=== PATIENT | female | born 1990 | race Caucasian/White ===

== ENCOUNTER 2020-11-29 22:37 | Emergency (ER) | payer MEDICAID, SELFPAY ==
[2020-11-29 22:46] VITALS: BP 114/59; PULSE 75; RESP 18; TEMP 36.7; O2SAT 100; BMI 28.0
--- NOTE | 2020-11-29 23:48 | ED.EYEPROB ---
HPI - Eye Problem General Chief complaint: Eye Problems Stated complaint: Eye swelling Time Seen by Provider: 11/29/20 23:47 Source: patient Mode of arrival: ambulatory Limitations: no limitations History of Present Illness HPI Narrative: States question felt like insect flew into left eye and she washed her eye out did not have any pain or discomfort short time after noticed some eyelid swelling in the lower eyelid. Denies any pain or discharge in the eye. Denies any blurred vision. Denies any feeling of foreign sensation. chief complaint: eye redness Onset (ago): hour(s) Onset description: gradual Duration: constant Location: left eye Place: home Severity: mild Treatments Prior to Arrival: none Related Data Previous Rx's Medication Instructions Recorded diphenhydramine HCl [Benadryl 25 mg PO BEDTIME PRN #14 tab 11/30/20 Allergy] erythromycin 0.5 inch OPHTHALMIC (EYE) QID #1 g 11/30/20 Allergies Allergy/AdvReac Type Severity Reaction Status Date / Time No Known Allergies Allergy Verified 11/29/20 22:46 Review of Systems Review of Systems: Constitutional: No Weight loss, No Fever, No Chills, No Night Sweats, No Fatigue, No Malaise ENT/Mouth: No Hearing loss, No Ear Pain, No Nasal Congestion, No Sinus Pain, No Hoarseness, No sore throat, No Rhinorrhea, No Swallowing Difficulty Eyes: No Eye Pain, + Swelling, + Redness, No Foreign Body, No Discharge, No Vision Changes Cardiovascular: No Chest Pain, No SOB, No Dyspnea on Exertion, No Orthopnea, No Edema, No Palpitations Respiratory: No Cough, No Sputum, No Wheezing, No Smoke Exposure, No Dyspnea Musculoskeletal: No joint pain, No Myalgias, No Joint Swelling Skin: No Skin Lesions, No rash Neuro: No Weakness, No Numbness, No Paresthesias, No Loss of Consciousness, No Dizziness, No Headache Psych: No Anxiety/Panic, No Depression, No SI/HI/AH/VH, No Social Issues, Heme/Lymph: No Bruising, No Bleeding,No Lymphadenopathy Endocrine: No Polyuria, No Polydipsia, No Temperature Intolerance Yes all other systems are reviewed and are negative [facility] Past Medical History Medical History (Updated 11/30/20 @ 00:05 by Kyle Hurley NP) No active medical problems Social History Social History Advance Directives: No Advance Directives Information Provided: No Patient : No Physical Exam Vital Signs: Vital Signs: Last Vital Signs Temp 98.1 F 11/29/20 22:46 Pulse 75 11/29/20 22:46 Resp 18 11/29/20 22:46 BP 114/59 L 11/29/20 22:46 Pulse Ox 100 11/29/20 22:46 Body Mass Index 28.0 Reviewed Const: General: cooperative, healthy appearing, comfortable, no acute distress, well developed, alert and awake HENMT: Head: Yes normal to inspection Ears: hearing grossly normal bilaterally Eyes: General: appearance normal, both eyes and all related structures Visual Lund: normal visual ulnd by confrontation Eyelids: Yes eyelid abnormality (Very slight swelling to the lower eyelid) Conjunctivae: conjunctival abnormal (Very slight erythema, no evidence of foreign body or corneal abrasion.) left Sclerae: sclerae normal Corneas: corneas normal Pupils: Equal, round and reactive pupils present EOM: EOMs intact bilaterally Neck: Neck: Yes normal visual inspection Skin: General skin exam: no rashes or lesions noted, elasticity normal and turgor normal Wounds: no wounds Nails: normal Neuro: General: normal sensation to monofilament Cranial nerves: Yes Equal, round and reactive pupils present Extrem: General: No cyanosis Psych: Appearance: grossly normal and well kempt Discharge Plan Discharge Clinical Impression: Conjunctivitis Patient Disposition: Home, Self-Care Instructions: Conjunctivitis (ED) Additional Instructions: Home care instructions reviewed Return if any concerns or worsening symptoms Thank you Prescriptions: New erythromycin 5 mg/gram (0.5 %) ointment 0.5 inch ophthalmic (eye) QID Qty: 1 RF: 1 diphenhydramine HCl [Benadryl Allergy] 25 mg tablet 25 mg PO BEDTIME PRN (Reason: allergic reaction) Qty: 14 RF: 0 Referrals: Nandini Sandoval NP [Primary Care Provider] - 5 days
[2020-11-30] VITALS: BP 106/70; PULSE 62; RESP 18; O2SAT 100
== END 2020-11-30 00:18 | disposition home or self-care (01) ==
PROVIDERS: Emergency Provider Internal Medicine; PCP Nurse Practitioner Family
DX: H10.9 Unspecified conjunctivitis (principal)
CPT/HCPCS: 99283; 99284

== ENCOUNTER 2022-04-03 10:00 | Outpatient (RCR) | payer MEDICAID, SELFPAY | END 2022-05-12 11:46 | disposition home or self-care (01) | LOC: HO.PT 10:00 | PROVIDERS: PCP Internal Medicine; Visit Provider Internal Medicine | DX: M54.2 Cervicalgia (principal) | CPT/HCPCS: 97012; 97110; 97112; 97140; 97161; 97530 ==

== ENCOUNTER 2023-03-23 09:32 | Outpatient (REF) | payer MEDICAID, SELFPAY ==
--- NOTE | ~2023-03-23 | XR_ITS ---
EXAMINATION: XR SHOULDER, LEFT CLINICAL INFORMATION: Pain Left shoulder pain for 2-3 weeks with exacerbation of chronic shoulder pain, no history of trauma. COMPARISON: None available. TECHNIQUE: AP external rotation, Grashey, scapular Y, and axillary views of the left shoulder. FINDINGS: The bones and soft tissues are normal. No fracture. Glenohumeral and acromioclavicular alignment is anatomic with normal joint space. No abnormal soft tissue calcifications. XR/XR shoulder LT min 2V IMPRESSION: No bony abnormality.
== END 2023-03-23 09:33 | disposition home or self-care (01) ==
LOC: HO.HHCX 09:32
PROVIDERS: Visit Provider Internal Medicine Geriatric Medicine
DX: M25.512 Pain in left shoulder (principal)
CPT/HCPCS: 73030

== ENCOUNTER 2024-01-03 09:00 | Outpatient (RCR) | payer MEDICAID, SELFPAY | END 2024-02-25 07:43 | disposition home or self-care (01) | LOC: HO.PT 09:00 | PROVIDERS: PCP Internal Medicine; Visit Provider Internal Medicine | DX: M54.2 Cervicalgia (principal); M25.512 Pain in left shoulder; M54.50 Low back pain, unspecified | CPT/HCPCS: 97012; 97110; 97140; 97161 ==

== ENCOUNTER 2024-10-11 08:42 | Outpatient (AMB) | payer MEDICAID, SELFPAY ==
[2024-10-11 08:56] VITALS: BMI 26.2
--- NOTE | 2024-10-11 08:56 | A.OFFVIS_ITS ---
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 She also has intermittent left shoulder pain. The patient states that she has been to formal physical therapy for her shoulder pain, low back pain and neck pain. The therapy gave her minimal relief. She has tried Tylenol and anti-inflammatory medicines which gave her relief. The patient also reports intermittent weakness in her left arm. The patient states that she has difficulty carrying groceries because of her pain and weakness. At this point the patient's neck pain is interfering with her activities of daily living and her ability to sleep well through the night. Allergies No Known Allergies Allergy (Verified 10/11/24 09:01) Medication List - Last Reviewed 10/11/24 by SARA Sanchez cetirizine 10 mg PO DAILY medroxyprogesterone mg IM paroxetine HCl 10 mg PO DAILY [facility] Medical History (Updated 10/11/24 @ 09:07 by Nik Mckeon MD) No active medical problems Social History (Updated 10/11/24 @ 08:57 by SARA Sanchez) Patient Tobacco Use Status: Never used Tobacco Current occupational status: unemployed Current occupation: rt handed Physical Exam Vital Signs: BMI result Body Mass Index 26.2 Const Other: Well-nourished well-developed very friendly female awake alert and oriented x3 in no acute distress Neck Other: Cervical spine examination shows pain with range of motion, left-sided paraspinal muscle tenderness, positive Spurling's test, 4/5 strength with testing of her left biceps and wrist extensors when compared to 5/5 strength on her right side Extrem Other: Left shoulder examination shows slightly decreased range of motion when compared to her right shoulder, 4+ out of 5 strength with supraspinatus testing, positive impingement signs, tenderness over her acromioclavicular joint, no instability Results Reviewed Results Reviewed: X-rays of the patient's left shoulder show moderate acromioclavicular joint narrowing, a type 2 acromion, no acute bony abnormalities Assessment & Plan Assessment & Plan (1) Left shoulder pain: Code(s): M25.512 - Pain in left shoulder Category: Medical (2) Neck pain on left side: Code(s): M54.2 - Cervicalgia Category: Medical Plan Ms. George presents with progressively worsening neck pain which radiates down her left arm as well as associated left arm weakness most likely due to cervical stenosis versus a disc herniation. Thus, I will send the patient for an MRI of her cervical spine for further evaluation. I will see her back once the MRI is completed to discuss the findings and treatment options. We will hold off on a left shoulder MRI at this time. Feel free to call me at any time should questions regarding her orthopedic management arise. Thank you very much for asking me to see this very friendly patient. I spent 21 minutes in reviewing the patient's records and imaging studies, seeing the patient and documenting in the medical record. Orders: Orders XR shoulder LT min 2V Today M25.512 - Pain in left shoulder MR cervical spine wo con Today M54.2 - Cervicalgia Coding Level of Care Code New Pt Level 3 (31542) Complex EM visit Add On G2211 Diagnoses Left shoulder pain M25.512 Neck pain on left side M54.2
--- OUTSIDE RECORDS SUMMARY | 2024-10-11 09:02 | XMS_ITS | Clinical Summary ---
Author Organization [facility] [address] [place] [address] [address] [place], [place] Phone Care Team Providers Care Vegetable Loader Machine Operator Name Role Phone Rosalind Galindo MD Primary Care Provide r Allergies No known active allergies Medications calcium carbonate-vitami n D 600 mg-10 mcg (400 unit) per tablet TAKE 1 TABLET BY MOUTH TWICE DAILY 11/22/2023 Active calcium carbonate-vitami n D3 (Calcium 600 with Vitamin D3) 600 mg-10 mcg (400 unit) chewable tablet Take 1 Tablet by mouth 2 times daily. 09/02/2022 Active fexofenadine HCl (MARJ ALLERGY ORAL) Take by mouth. Active ibuprofen (ADVIL,MOTRIN) 800 mg tablet Take 1 Tab by mouth every 8 hours as needed for Pain for up to 30 days. 04/15/2020 Active Active Problems Problem Noted Date Diagnosed Date Pap smear abnormality of cervix with ASCUS favor ing benign 09/04/2021 Overview (04/07/2024): 08/2021 PAP , Ascus, + hpv, (neg 16, 18, 45) Per [facility]- Colpo 10/06/2021- Colpo Bx neg Plan repeat pap smear 1 yr 11/22/23- pap smear Encounters Date Type Department Care Team Description 08/14/2024 9:00 AM EDT Clinical Support Obstetrics and Gynecology [address] [phone] Encounter for surveillance of injectable contraceptive (Primary Dx) from Last 3 Months Immunizations Name Administration Dates Next Due Moderna SARS-CoV-2 COVID-19, mRNA, LNP-S, preservative free 07/22/2021,11/27/2020,11/12/2020 Surgical History Surgery Date Site/Laterality Comments OTHER SURGICAL HISTORY PROCEDURE: DENIES PREVIOUS SURGERY Medical History Medical History Date Comments Hx of migraines DX:Hx of migrain es; COMMENT: with aura Family History Medical History Relation Name Comments No Known Problems Brother Diabetes Father Hypertension Father Hypertension Maternal Grandfather Hypertension Maternal Grandmother Diabetes Mother Hypertension Mother Hypertension Paternal Grandfather Other cancer Paternal Grandfather Hypertension Paternal Grandmother Other cancer Paternal Grandmother No Known Problems Sister Breast cancer Neg Hx Colon cancer Neg Hx Ovarian cancer Neg Hx Prostate cancer Neg Hx Uterine cancer Neg Hx Relation Name Status Comments Brother Alive Father Alive Maternal Grandfather Maternal Grandmother Mother Alive Paternal Grandfather Paternal Grandmother Sister Alive Social History Tobacco Use Types Packs/Day Years Used Date Smoking Tobacco: Never Smokeless Tobacco: Never Tobacco Cessation:Counseling Given: Not Answered Alcohol Use Standard Drinks/Week Comments No 0 (1 standard drink = 0.6 oz pur e alcohol) Comments No Sex and Gender Information Value Date Recorded Sex Assigned at Not on file Legal Sex Female 3:34 PM EST Gender Identity Not on file Sexual Orientation Not on file Obstetrics History Last Filed Vital Signs Vital Sign Reading Time Taken Comments Blood Pressure 130/70 08/14/2024 8:53 AM EDT Pulse 81 05/16/2024 9:09 AM EST Temperature - - Respiratory Rate - - Oxygen Saturation - - Inhaled Oxygen Concentration - - Weight 59 kg (130 lb) 11/22/2023 8:51 AM EDT Height 152.4 cm (5') 11/22/2023 8:51 AM EDT Body Mass Index 25.39 11/22/2023 8:51 AM EDT Plan of Treatment Upcoming Encounters Date Type Department Care Team (Late st Contact Info) Description 11/13/2024 9:00 AM EDT Clinical Support Obstetrics and Gynecology [address] [phone] Health Maintenance Due Date Last Done Comments Pneumococcal Vaccine: Pediatrics (0 to 5 Years) and At-Risk Patients (6 to 64 Years) (1 of 2 - PCV) 2008 DTaP,Tdap,and Td Vaccines (8 - Td or Tdap) 04/05/2017 04/05/2007, 02/18/2001, 09/04/1993, Additional history exists Depression Screening 05/16/2022 Social Influencers of Health Screening 05/16/2022 COVID-19 Vaccine ( season) 2024 07/22/2021, 06/19/2021, 11/27/2020, Additional history exists Influenza Vaccine (Season Ended) 2025 03/04/2023, 03/24/2022, 03/10/2021, Additional history exists Cervical Cancer Screening: HPV 11/21/2028 11/22/2023 IPV Vaccines Completed 09/04/1993, 02/07, 01/04/1990, Additional history exists MMR Vaccines Completed 09/04/1993, 03/06/1991 Hepatitis B Vaccines Completed 03/18/1999, 12/13/1998, 11/13/1998 Meningococcal ACWY Vaccine Completed 12/22/2005 HPV Vaccines Completed 04/15/2009, 08/05, 04/05/2007 Hepatitis C Screening Completed 10/01/2017 HIV Screening Completed 10/13/2021, 10/01/2017 HIB Vaccines Aged Out No longer eligi ble based on patient's age to complete this topic Hepatitis A Vaccines Aged Out No long er eligible based on patient's age to complete this topic Meningococcal B Vaccine Aged Out No l onger eligible based on patient's age to complete this topic RSV Immunization Patients Under 20 months Aged Out No longer eligible based on patient's age to complete this topic Varicella Vaccines Aged Out No longer eligible based on patient's age to complete this topic Procedures Procedure Name Priority Date/Time Associated Diagnosis Comments HPV Routine 11/22/2023 HEPATITIS C SCREENING Routine 10/01/2017 HIV SCREENING Routine 10/01/2017 from Last 3 Months or Most Recently Relevant to Health Maintenance Results * Cervical Cancer Screening: HPV (11/22/2023) [facility] Cervical Cancer Screening: HPV Abstracted, Negative Historical Provider HEALTH MAINTENANCE Final Result * HIV Screening (10/01/2017) [facility] HIV Screening Abstracted Historical Provider HEALTH MAINTENANCE Final Result * Hepatitis C Screening (10/01/2017) [facility] Hepatitis C Screening Abstracted Historical Provider HEALTH MAINTENANCE Final Result from Last 3 Months or Most Recently Relevant to Health Maintenance Insurance MEDICAID - [place] Care Teams Vegetable Loader Machine Operator Relationship Specialty Start Date End Date Rosalind Galindo MD [address] [phone] PCP - General Internal Medicine 08/11/24
--- OUTSIDE RECORDS SUMMARY | 2024-10-11 09:02 | XMS_ITS | Encounter Summary ---
Author Organization [employer] Address [address] [facility] [address] [place] [address] Care Team Providers Care Pool Servicer Name Role Phone Rosalind Galindo MD Primary Care Provide r Encounter Details Date Type Department Care Team (Late st Contact Info) Description 09/01/2022 Orders Only [facility] [address] [place] [address] Rolanda Ramos LPN Social History Tobacco Use Types Packs/Day Years Used Date Smoking Tobacco: Never Assessed Comments Unknown Sex and Gender Information Value Date Recorded Sex Assigned at Female 04/06/2022 10:21 AM EDT Legal Sex Female 10:21 AM EDT Gender Identity Female 04/06/2022 10:21 AM EDT Sexual Orientation Straight 04/06/2022 10 :21 AM EDT documented as of this encounter Plan of Treatment Upcoming Encounters Date Type Department Care Team (Late st Contact Info) Description 11/15/2024 9:00 AM EDT Office Visit [facility] [address] [place] [address] Rosalind Galindo MD [address] [place] [address] documented as of this encounter Visit Diagnoses Not on filedocumented in this encounter Care Teams Pool Servicer Relationship Specialty Start Date End Date Rosalind Galindo MD [address] [place] [id number] PCP - General Family Medicine 01/23/21 documented as of this encounter
--- OUTSIDE RECORDS SUMMARY | 2024-10-11 09:02 | XMS_ITS | Encounter Summary ---
Author Organization [facility] Address [address] [place] [phone] Phone Care Team Providers Care Ice Puller Name Role Phone Isa Momin MD Primary Care Provider [phone] Encounter Details Date Type Department Care Team (Late st Contact Info) Description 09/25/2009 Documentation EM Family Medicine [address] [place] [address] Family Medicine, Physician [address] [place], [place] [phone] Social History Tobacco Use Types Packs/Day Years Used Date Smoking Tobacco: Never Assessed Comments Unknown Sex and Gender Information Value Date Recorded Sex Assigned at Not on file Legal Sex Female 4:32 PM EDT Gender Identity Not on file Sexual Orientation Not on file documented as of this encounter Plan of Treatment Not on file documented as of this encounter Visit Diagnoses Not on filedocumented in this encounter Care Teams Ice Puller Relationship Specialty Start Date End Date Isa Momin MD [address] [place] [address] DULCE MARIA Reardon [id number] PCP - General 01/15/17 08/19/22 documented as of this encounter
--- OUTSIDE RECORDS SUMMARY | 2024-10-11 09:02 | XMS_ITS | Encounter Summary ---
Author Organization [employer] Address [address] [facility] [address] [place] [address] Care Team Providers Care Distribution Center Manager Name Role Phone Rosalind Galindo MD Primary Care Provide r Reason for Visit * Reason Comments Med Refill Encounter Details Date Type Department Care Team ([facility] st Contact Info) Description 04/23/2023 Refill [facility] [address] [place], [place] [phone] Kaitlin Leung MD [address] [place], [place] [phone] Anxiety disorder, unspecified Social History Tobacco Use Types Packs/Day Years Used Date Smoking Tobacco: Never Smokeless Tobacco: Never Housing Stability Answer Date Recorded What is your housing situation today? I have sharon burnham 04/12/[address] you li ve. Do you have problems with any of the following? Pests such as bugs, ants, or mice 04/12/2023 Food Insecurity Answer Date Recorded Within the past 12 months, y ou worried that your food would run out before you got money to buy more: Never True 04/12/2023 Within the past 12 months,th e food you bought just didn't last and you didn't have enough money to get more: Never True 11/2022 Transportation Answer Date Recorded In the past 12 months, has l ack of transportation kept you from medical appts, meetings, work or from getting things needed for daily living? No 04/12/2023 Utilities Answer Date Recorded In the past 12 months, has t he electric, gas, oil or water company threatened to shut off services in your home? No 04/12/2023 Comments Unknown Sex and Gender Information Value [...] Description 11/15/2024 9:00 AM EDT Office Visit [facility] [address] [place] [address] Rosalind Galindo MD [address] [place] [address] documented as of this encounter Visit Diagnoses Diagnosis Anxiety disorder, unspecified documented in this encounter Care Teams Distribution Center Manager Relationship Specialty Start Date End Date Rosalind Galindo MD [address] [place] [id number] PCP - General Family Medicine 01/23/21 documented as of this encounter
--- OUTSIDE RECORDS SUMMARY | 2024-10-11 09:02 | XMS_ITS | Clinical Summary ---
Author Organization [employer] Address [address] [facility] 7t [place] [address] Care Team Providers Care Housekeeping Manager Name Role Phone Rosalind Galindo MD Primary Care Provide r Allergies No known active allergies Medications albuterol 108 (90 Base) MCG/ACT inhalerIndicatio ns:Mild intermittent asthma, unspecified whether complicated Inhale 2 puffs every 6 (six) hours if needed for wheezing. 18 g 11 09/18/19 23 Active Calcium + Vitamin D3 600-10 MG-MCG tablet Take 1 tablet by mouth 2 times daily. 09/03/19 23 Active cholecalciferol (Vitamin D-3) 50 MCG (1999 UT) tablet Take 50 mcg by mouth in the morning. 09/01/19 23 Active medroxyPROGESTER one (Depo-Provera) 150 MG/ML injection TAKE TO DOCTOR'S OFFICE FOR ADMINISTRATION EVERY 3 MONTHS 09/01/19 23 Active hydrOXYzine pamoate (Vistaril) 25 MG capsuleIndicatio ns:Anxiety disorder, unspecified TAKE 1 CAPSULE BY MOUTH THREE TIMES DAILY NEEDED FOR ANXIETY 45 capsule 2 02/05/20 23 Active hydrOXYzine pamoate (Vistaril) 25 MG capsule TAKE 1 CAPSULE BY MOUTH THREE TIMES DAILY NEEDED FOR ANXIETY 01/27/20 23 Active PARoxetine (Paxil) 10 MG tablet TAKE 1 TABLET BY MOUTH EVERY DAY 03/31/20 23 Active fluticasone (Flonase) 50 MCG/ACT nasal spray INSTILL 1-2 SPRAYS IN EACH NOSTRIL ONCE DAILY NEEDED 48 g 1 03/21/20 24 Active cetirizine (ZyrTEC) 10 MG tablet TAKE 1 TABLET BY MOUTH EVERY DAY 90 tablet 1 05/30/20 24 Active PARoxetine (Paxil) 10 MG tabletIndication s:Anxiety disorder, unspecified Take 1 tablet (10 mg) by mouth Once per day. 30 tablet 08/24/19 25 Active acetaminophen (Tylenol 8 Hour) 650 MG ER tabletIndication s:Chronic left shoulder pain,Chronic neck pain Take 1 tablet (650 mg) by mouth every 8 (eight) hours if needed for mild pain for up to 20 days. Do not crush, chew, or split. 30 tablet 1 08/24/19 25 025 cyclobenzaprine (Flexeril) 5 MG tabletIndication s:Chronic left shoulder pain,Chronic neck pain Take 1 tablet (5 mg) by mouth at bedtime. 30 tablet 08/24/19 25 025 Active Problems Problem Noted Date Diagnosed Date Left hand weakness 08/23/2024 Assessment & Plan (08/23/2024 1:25 PM EDT): Nerve conduction test ordered Anxiety 08/23/2024 Assessment & Plan (08/23/2024 1:27 PM EDT): Paroxetine 10mg daily refilled today Right foot pain 09/17/2023 Assessment & Plan (09/17/2023 12:27 PM EDT): Orthopedic boot prescriction to be generated Right wrist pain 09/17/2023 Assessment & Plan (09/17/2023 12:27 PM EDT): Wrist brace prescription to be generated Health care maintenance 09/17/2022 Chronic left-sided low back pain 09/15/2022 Assessment & Plan (09/17/2022 12:59 PM EDT): XRAY ordered fr further evaluation She may continue with ibuprofen and acetaminophen PRN Chronic left shoulder pain 09/15/2022 Assessment & Plan (08/23/2024 1:25 PM EDT): Apply heat on affected area Acetaminophen PRN I prescribed flexeril 5mg at bed time, she is aware of side effect somnolence, I advise not to drive while taking this medication Patient will be referred to orthopedics Nerve conduction test Chronic neck pain 09/15/2022 Assessment & Plan (08/23/2024 1:24 PM EDT): Apply heat on affected area Acetaminophen PRN I prescribed flexeril 5mg at bed time, she is aware of side effect somnolence, I advise not to drive while taking this medication Patient will be referred to orthopedics Nerve conduction test Assessment & Plan (09/17/2022 12:58 PM EDT): Still persistent I will order XRAY for further evaluation She may continue to take acetaminophen and ibuprofen PRN Mild intermittent asthma 09/15/2022 Assessment & Plan (09/17/2022 12:59 PM EDT): Symptoms under control I will refill her albuterol Vitamin D deficiency 09/15/2022 Encounters Date Type Department Care Team Description 08/31/2024 Orders Only [facility] [address] [place] [address] Rosalind Galindo MD Chronic left shoulder pain (Primary Dx); Chronic neck pain 08/31/2024 Telephone [employer] [address] [place] [address] Rosalind Galindo MD 08/23/2024 9:15 AM EDT Office Visit [facility] [address] [place] [phone] Rosalind Galindo MD Chronic left shoulder pain (Primary Dx); Chronic neck pain; Left hand weakness; Anxiety disorder, unspecified; Anxiety 08/23/2024 Travel 08/18/2024 Population Health Risk Score Community Care [facility] ([facility] Department [address] [place] [phone] Provider, Population Health Generic 08/15/2024 Patient Outreach [facility] [address] [place] [phone] Rosalind Galindo MD Pre-visit Planning (SDOH Screening negative and Tobacco screening negative) from Last 3 Months Immunizations Name Administration Dates Next Due DTP 01/04/1990,1989 DTaP, 5 pertussis antigens 09/04/1993,03/06/1991 ,03/06/1990 HPV, Quadrivalent 04/15/2009,08/14/2008,04/05/20 07 Hep B, Adolescent or Pediatric 03/18/1999,1998,11/13/1998 INFLUENZA VACCINE QUADRIVALE NT RECOMBINANT PRESERVATIVE FREE RIV4 04/02/2020 IPV 09/04/1993, 1,01/04/1990,11/04 Influenza Injectable Quadriv alant Preservative Free IIV4 MDCK 03/24/2022 Influenza injectable quadriv alent IIV4 with preservative 02/24/2018 Influenza injectable quadriv alent preservative free 03/04/2023,03/10/2021,02/27/2019,03/01 Influenza, IIV3, injectable 04/04/2014, 0,04/05/2007 Influenza, Split (incl. tal fied surface antigen) 03/22/2013,06/29/2012 MMR 09/04/1993,03/06/1991 Meningococcal MCV4P [id number] 12/22/2005 Moderna Covid-19 Vaccine 12+ 07/22/2021,11/24/19 21,11/12/2020 Novel [id number], all formulations 04/15/2009 TD (adult), 2 Lf tetanus tox oid, preservative free, adsorbed 02/18/2001 Tdap 04/05/2007 Family History Medical History Relation Name Comments Diabetes Father Hypertension Father Diabetes Mother Hypertension Mother Relation Name Status Comments Father Mother Social History Tobacco Use Types Packs/Day Years Used Date Smoking Tobacco: Never Passive Smoke Exposure: Never Smokeless Tobacco: Never Tobacco Cessation:Counseling Given: Not Answered Alcohol Use Standard Drinks/Week Comments Never 0 (1 standard drink = 0.6 oz pur e alcohol) Depression Answer Date Recorded Patient Health Questionnaire-9 Score 0 08/23/2024 Patient Health Questionnaire-9 Score 0 08/23/2024 Last PHQ-9: Questionnaire Data Not on file 0 08/23/2024 Housing Stability Answer Date Recorded What is your housing situation today? I have sharon burnham 08/15/[address] you li ve. Do you have problems with any of the following? None of the above 08/15/2024 Food Insecurity Answer Date Recorded Within the past 12 months, y ou worried that your food would run out before you got money to buy more: Never True 08/15/2024 Within the past 12 months,th e food you bought just didn't last and you didn't have enough money to get more: Never True 04/2025 Transportation Answer Date Recorded In the past 12 months, has l ack of transportation kept you from medical appts, meetings, work or from getting things needed for daily living? No 08/15/2024 Utilities Answer Date Recorded In the past 12 months, has t he electric, gas, oil or water company threatened to shut off services in your home? No 08/15/2024 Depression Answer Date Recorded Patient Health Questionnaire-2 Score 0 08/23/2024 Internet Access Answer Date Recorded Internet Access Q1 Yes 08/15/2024 Internet Access Q2 Not on file 08/15/2024 Comments Unknown Sex and Gender Information Value Date Recorded Sex Assigned at Female 04/06/2022 10:21 AM EDT Legal Sex Female 10:21 AM EDT Gender Identity Female 04/06/2022 10:21 AM EDT Sexual Orientation Straight 04/06/2022 10 :21 AM EDT Last Filed Vital Signs Vital Sign Reading Time Taken Comments Blood Pressure 120/73 08/23/2024 9:19 AM EDT Pulse 73 08/23/2024 9:19 AM EDT Temperature 35.9 ??C (96.7 ??F) 08/23/2024 9:19 AM ED T Respiratory Rate 16 08/23/2024 9:19 AM EDT Oxygen Saturation 99% 09/17/2023 10:46 AM EDT Inhaled Oxygen Concentration - - Weight 64 kg (141 lb) 08/23/2024 9:19 AM EDT Height 157.5 cm (5' 2 ) 08/23/2024 9:19 AM EDT Body Mass Index 25.79 08/23/2024 9:19 AM EDT Plan of Treatment Upcoming Encounters Date Type Department Care Team (Late st Contact Info) Description 11/15/2024 9:00 AM EDT Office Visit [facility] [address] [place] [address] Rosalind Galindo MD [address] [place] [address] Health Maintenance Due Date Last Done Comments Family Planning (PISQ) 2004 Pneumococcal Vaccine: Pediatrics (0 to 5 Years) and At-Risk Patients (6 to 49) Years) (1 of 2 - PCV) 2008 DTaP/Tdap/Td Vaccines (7 - Td or Tdap) 04/05/2017 04/05/2007, 02/18/2001, 09/04/1993, Additional history exists COVID-19 Vaccine ( season) 2024 07/22/2021, 06/19/2021, 11/23/2020, Additional history exists Influenza Vaccine (#1) 2024 , 03/24/2022, 03/10/2021, Additional history exists Cervical Cancer Screening 11/21/2024 HPV/Cotest 11/21/2024 Pap Smear 11/21/2024 11/22/2023, 08/25/2021 SDOH Screening 08/15/2025 08/15/2024 Alcohol/Substance Use Screening 08/23/2025 08/23/2024 Depression Screening 08/23/2025 08/23/2024, 08/24/19 25 Tobacco Screening 08/23/2025 08/23/2024 Zoster Vaccines (1 of 2) 2039 RSV Patients and Patients Aged 60 years or older (1 - 1-dose 75+ series) 2064 IPV Vaccines Completed 09/04/1993, 02/07, 01/04/1990, Additional history exists Hepatitis B Vaccines Completed 03/18/1999, 03/18/1999, 12/13/1998, Additional history exists Meningococcal Vaccine Completed 12/22/2005 HPV Vaccines Completed 04/15/2009, 08/05, 04/05/2007 Colposcopy Discontinued 10/06/2021 HIV Screening Completed 10/13/2021 Hepatitis C Screening Completed 10/13/2021 HIB Vaccines Aged Out No longer eligi ble based on patient's age to complete this topic Hepatitis A Vaccines Aged Out No long er eligible based on patient's age to complete this topic RSV under 20 months Aged Out No longe r eligible based on patient's age to complete this topic Rotavirus Vaccines Aged Out No longer eligible based on patient's age to complete this topic Procedures Procedure Name Priority Date/Time Associated Diagnosis Comments HM PAP/HPV Routine 11/22/2023 1:51 PM EDT ZZZ HISTORICAL HEPATITIS C AB W/REFL TO HCV RNA, QN, PCR Routine 10/13/2021 8:45 AM EDT HIV 1/2 ANTIGEN/ANTIBODY, FOURTH GENERATION W/RFL Routine 10/13/2021 8:45 AM EDT COLPOSCOPY Routine 10/06/2021 1:47 PM EDT from Last 3 Months or Most Recently Relevant to Health Maintenance Results * HM PAP/HPV (11/22/2023 1:51 PM EDT) Historical Provider HEALTH MAINTENANCE Final Result * HEPATITIS C AB W/REFL TO HCV RNA, QN, PCR (10/13/2021 8:45 AM EDT) HEPATITIS C ANTIBODY NON-REACT DESTINY NON-REACT DESTINY [facility] INDEX 0.02 <1.00 [facility] Comment: ?? HCV antibody was non-reactive. There is no laboratory ?? evidence of HCV infection. ?? In most cases, no further action is required. However, if recent HCV exposure is suspected, a test for HCV RNA (test code 15995) is suggested. ?? For additional information please refer to http://education.[employer]/faq/PWE94r8 (This link is being provided for informational/ educational purposes only.) ?? 10/13/2021 8:45 AM EDT Rosalind Carballo MD HISTORICAL/NON ORDERA BLE LABS Final Result [facility] [address] * HIV 1/2 ANTIGEN/ANTIBODY,FOURTH GENERATION W/RFL (10/13/2021 8:45 AM EDT) HIV-1/2 ANTIGEN AND ANTIBODIES, 4TH GENERATION W/ REFLEX NON-REACT DESTINY NON-REACT DESTINY [facility] Comment: HIV-1 antigen and HIV-1/HIV-2 antibodies were not detected. There is no laboratory evidence of HIV infection. ?? PLEASE NOTE: This information has been disclosed to you from records whose confidentiality may be protected by state law. ??If your state requires such protection, then the state law prohibits you from making any further disclosure of the information without the specific written consent of the person to whom it pertains, or as otherwise permitted by law. A general authorization for the release of medical or other information is NOT sufficient for this purpose. ? For additional information please refer to http://education.[employer]/faq/OHZ334 (This link is being provided for informational/ educational purposes only.) ? The performance of this assay has not been clinically validated in patients less than 2 years old. ?? 10/13/2021 8:45 AM EDT Rosalind Carballo MD LAB BLOOD ORDERABLES Final Result Performing Organization Address City/State/[facility] Co [facility] Number [facility] [address] * Colposcopy (10/06/2021 1:47 PM EDT) Historical Provider IN CLINIC/BEDSIDE ORDERAB LES Final Result from Last 3 Months or Most Recently Relevant to Health Maintenance Insurance [employer] Care Teams Housekeeping Manager Relationship Specialty Start Date End Date Rosalind Galindo MD [address] [place] [address] PCP - General Family Medicine 01/23/21
--- OUTSIDE RECORDS SUMMARY | 2024-10-11 09:02 | XMS_ITS | Encounter Summary ---
Author Organization [facility] Address [address] [place] [address] Phone Care Team Providers Care Nonprofit Fundraiser Name Role Phone Isa Momin MD Primary Care Provider [phone] Encounter Details Date Type Department Care Team (Late st Contact Info) Description 01/21/2017 Conversion Encounter [facility] [address] [place] [address] Social History Tobacco Use Types Packs/Day Years [...] on filedocumented in this encounter Care Teams Nonprofit Fundraiser Relationship Specialty Start Date End Date Isa Momin MD [address] [place] [address] PCP - General 01/15/17 08/19/22 documented as of this encounter
--- OUTSIDE RECORDS SUMMARY | 2024-10-11 09:02 | XMS_ITS | Clinical Summary ---
Author Organization [facility] Address [address] [place] [phone] Phone Care Team Providers Care Scientific Manager Name Role Phone Unavailable Primary Care Provider Unavailabl e Immunizations Immunization Administration Dates Next Due DTP 01/04/1990,1989 DTaP 5 09/04/1993,03/06/1991,03/06/1990 H1N1 04/15/2009 HPV, Quadrivalent 04/15/2009,08/14/2008,04/05/20 07 Hep B, ped/adol 03/18/1999,12/13/1998,11/13/1998 IPV 09/04/1993, 1,01/04/1990,11/04 Influenza, injectable, trivalent 06/18/2009,03/09 MMR 09/04/1993,03/06/1991 Meningococcal Conj (Menactra) MCV4P 12/22/2005 Td (adult) (MBL), 2 Lf tetan us toxoid, PF, adsorbed 02/18/2001 Tdap 04/05/2007 Family History Relation Name Status Comments Brother Alive Brother: Alive and well Father Father: Asthma Mother Alive Mother: Migrain es Other No family histo ry of ADD/ADHD, No family history of Sudden /[place] under age 55, No family history of Migraines, No family history of Seizure disorder, No family history of Elevated cholesterol, Family history of Deafness, No family history of Obesity, Family history of Diabetes mellitus, No family history of Developmental dislocation of hip, No family history of Autism, No family history of Strabismus/amblyopia, No family history of Asthma Sister Sister: Migrain es Social History Tobacco Use Types Packs/Day Years Used Date Smoking Tobacco: Never Assessed Comments Unknown Sex and Gender Information Value Date Recorded Sex Assigned at Not on file Legal Sex Female 4:32 PM EDT Gender Identity Not on file Sexual Orientation Not on file Last Filed Vital Signs Vital Sign Reading Time Taken Comments Blood Pressure - - Pulse - - Temperature 36.4 ??C (97.6 ??F) 10/08/2009 12:00 AM E DT Respiratory Rate - - Oxygen Saturation - - Inhaled Oxygen Concentration - - Weight 43.5 kg (96 lb) 10/08/2009 12:00 AM EDT Height - - Body Mass Index - - Plan of Treatment Health Maintenance Due Date Last Done Comments Varicella Vaccines (1 of 2 - 13+ 2-dose series) 2002 DTaP,Tdap,and Td Vaccines (7 - Td or Tdap) 04/05/2017 04/05/2007, 02/18/2001, 09/04/1993, Additional history exists Influenza Vaccines (#1) 2024 06/18/2009, 04/05 COVID-19 Vaccine ( season) 2024 IPV Vaccines Completed 09/04/1993, 02/07, 01/04/1990, Additional history exists MMR Vaccines Completed 09/04/1993, 03/06/1991 Hepatitis B Vaccines Completed 03/18/1999, 12/13/1998, 11/13/1998 Meningococcal Vaccine Completed 12/22/2005 HPV Vaccines Completed 04/15/2009, 08/05, 04/05/2007 HIB Vaccines Aged Out No longer eligi ble based on patient's age to complete this topic Hepatitis A Vaccines Aged Out No long er eligible based on patient's age to complete this topic Men B Vaccine Aged Out No longer elig ible based on patient's age to complete this topic Pneumococcal Vaccine Aged Out No long er eligible based on patient's age to complete this topic
--- OUTSIDE RECORDS SUMMARY | 2024-10-11 09:02 | XMS_ITS | Encounter Summary ---
Author Organization [employer] Address [address] [facility] [facility] [address] [place] [address] Care Team Providers Care Automotive Worker Foreman Name Role Phone Rosalind Galindo MD Primary Care Provide r Encounter Details Date Type Department Care Team ([facility] st Contact Info) Description 04/23/2023 Orders Only [facility] PEDS [address] [place] [address] Rolanda Ramos LPN Social History Tobacco Use Types Packs/Day Years Used Date Smoking Tobacco: Never Smokeless Tobacco: Never Housing Stability Answer Date Recorded What is your housing situation today? I have sharonjodie burnham 04/12/[address] you [...] Description 11/15/2024 9:00 AM EDT Office Visit [facility] [address] [place] [address] Rosalind Galindo MD [address] [place] [address] documented as of this encounter Visit Diagnoses Not on filedocumented in this encounter Care Teams Automotive Worker Foreman Relationship Specialty Start Date End Date Rosalind Galindo MD [address] [place] [phone] PCP - General Family Medicine 01/23/21 documented as of this encounter
--- OUTSIDE RECORDS SUMMARY | 2024-10-11 09:02 | XMS_ITS | Encounter Summary ---
Author Organization [employer] Address [address] [place] [address] Care Team Providers Care Milled Lumber Grader Name Role Phone Rosalind Galindo MD Primary Care Provide r Encounter Details Date Type Department Care Team (Late st Contact Info) Description 07/03/2024 Orders Only [facility] [address] [place], [place] [phone] ProviderSusie MD Social History Tobacco Use Types Packs/Day Years Used Date Smoking Tobacco: Never Passive Smoke Exposure: Never Smokeless Tobacco: Never Housing Stability Answer [...] Description 11/15/2024 9:00 AM EDT Office Visit [facility] [address] [place] [address] Rosalind Galindo MD [address] [place] [address] documented as of this encounter Procedures Procedure Name Priority Date/Time Associated Diagnosis Comments HM PAP/HPV Routine 11/22/2023 1:51 PM EDT COLPOSCOPY Routine 10/06/2021 1:47 PM EDT HM PAP/HPV Routine 08/25/2021 1:44 PM EDT documented in this encounter Results * HM PAP/HPV (11/22/2023 1:51 PM EDT) Historical Provider HEALTH MAINTENANCE Final Result * Colposcopy (10/06/2021 1:47 PM EDT) Historical Provider IN CLINIC/BEDSIDE ORDERAB LES Final Result * HM PAP/HPV (08/25/2021 1:44 PM EDT) Historical Provider HEALTH MAINTENANCE Final Result documented in this encounter Visit Diagnoses Not on filedocumented in this encounter Care Teams Milled Lumber Grader Relationship Specialty Start Date End Date Rosalind Galindo MD [address] [place] [phone] PCP - General Family Medicine 01/23/21 documented as of this encounter
--- OUTSIDE RECORDS SUMMARY | 2024-10-11 09:02 | XMS_ITS | Encounter Summary ---
Author Organization [employer] Address [address] [facility] 7t [place] [address] Care Team Providers Care Dental Office Assistant Name Role Phone Rosalind Galindo MD Primary Care Provide r Encounter Details Date Type Department Care Team (Late st Contact Info) Description 02/04/2023 Orders Only [facility] MED & PEDS [address] [place] [address] Rolanda Ramos LPN Social History Tobacco Use Types Packs/Day Years Used Date Smoking Tobacco: Never Smokeless Tobacco: Never Comments Unknown Sex and Gender Information Value [...] Description 11/15/2024 9:00 AM EDT Office Visit [facility] MEDICINE [address] [place] [address] Rosalind Galindo MD [address] [place] [address] documented as of this encounter Visit Diagnoses Not on filedocumented in this encounter Care Teams Dental Office Assistant Relationship Specialty Start Date End Date Rosalind Galindo MD [address] [place] [phone] PCP - General Family Medicine 01/23/21 documented as of this encounter
--- OUTSIDE RECORDS SUMMARY | 2024-10-11 09:02 | XMS_ITS | Encounter Summary ---
Author Organization [facility] Address [address] [place] [phone] Phone Care Team Providers Care Supervisor Sewing Department Name Role Phone Isa Momin MD Primary Care Provider [phone] Encounter Details Date Type Department Care Team (Late st Contact Info) Description 09/25/2009 Documentation EM Family Medicine [address] [place] [address] Family Medicine, Physician [address] [place], [place] [phone] Social History Tobacco Use Types Packs/Day Years [...] on filedocumented in this encounter Care Teams Supervisor Sewing Department Relationship Specialty Start Date End Date Isa Momin MD [address] [place] [address] [place] MARIA Reardon [id number] PCP - General 01/15/17 08/19/22 documented as of this encounter
--- OUTSIDE RECORDS SUMMARY | 2024-10-11 09:02 | XMS_ITS | Encounter Summary ---
Author Organization [facility] Address [address] [place] [phone] Phone Care Team Providers Care Audioprosthologist Name Role Phone Isa Momin MD Primary Care Provider [phone] Encounter Details Date Type Department Care Team (Late st Contact Info) Description 08/28/2009 Documentation EM Family Medicine [address] [place] [address] Family Medicine, Physician [address] [place], [place] [phone] Social History Tobacco Use Types Packs/Day Years [...] on filedocumented in this encounter Care Teams Audioprosthologist Relationship Specialty Start Date End Date Isa Momin MD [address] [place] [address] [place] Reardon [id number] PCP - General 01/15/17 08/19/22 documented as of this encounter
== END 2024-10-11 09:06 | disposition home or self-care (01) ==
LOC: HO.HOS 08:43
PROVIDERS: PCP Internal Medicine; Visit Provider Orthopaedic Surgery
DX: M25.512 Pain in left shoulder (principal); M54.2 Cervicalgia
CPT/HCPCS: 99203

== ENCOUNTER → 2024-10-11 08:48 | Outpatient (BNV) | payer MEDICAID, SELFPAY | PROVIDERS: Visit Provider Radiology Diagnostic Radiology | DX: M25.512 Pain in left shoulder (principal) | CPT/HCPCS: 73030 ==

== ENCOUNTER 2024-10-11 15:13 | Outpatient (REF) | payer MEDICAID, SELFPAY ==
--- NOTE | ~2024-10-11 | XR_ITS ---
EXAMINATION: XR SHOULDER, LEFT CLINICAL INFORMATION: M25.512 - Pain in left shoulder COMPARISON: March 23, 2023. TECHNIQUE: AP external rotation, Grashey, scapular Y, and axillary views of the left shoulder. FINDINGS: No acute cortical disruption or malalignment. No lytic or blastic lesions. No subcutaneous. No metallic or radiopaque foreign body. No subchondral cyst formation or sclerosis and the articular surfaces. XR/XR shoulder LT min 2V IMPRESSION: Normal x-ray left shoulder. Electronically signed by: Boogie Leong MD 10/11/2024 08:59 AM EDT
--- OUTSIDE RECORDS SUMMARY | 2024-10-12 15:45 | XMS_ITS | Clinical Summary ---
Author Organization [facility] Address [address] [place] [phone] Phone Care Team Providers Care Telecommunications Analyst Name Role Phone Unavailable Primary Care Provider [...] of ADD/ADHD, No family history of Sudden /[place] under age 55, No family history of [...]
--- OUTSIDE RECORDS SUMMARY | 2024-10-12 15:45 | XMS_ITS | Encounter Summary ---
Author Organization [facility] Address [address] [place] [address] Phone Care Team Providers Care Animal Geneticist Name Role Phone Isa Momin MD Primary Care Provider [phone] Encounter Details Date Type Department Care Team (Late st Contact Info) Description 09/25/2009 Documentation EM Family Medicine [address] [place] [address] Family Medicine, Physician [address] [place], [place] 209871 Social History Tobacco Use Types Packs/Day Years [...] on filedocumented in this encounter Care Teams Animal Geneticist Relationship Specialty Start Date End Date Isa Momin MD [address] [place] [address] DULCE MARIA Reardon [phone] PCP - General 01/15/17 08/19/22 documented as of this encounter
--- OUTSIDE RECORDS SUMMARY | 2024-10-12 15:45 | XMS_ITS | Encounter Summary ---
Author Organization [employer] Address [address] 7t [place] [address] Care Team Providers Care Personnel Director Name Role Phone Rosalind Galindo MD Primary Care Provide r Encounter Details Date Type Department Care Team ([facility] st Contact Info) Description 04/23/2023 Orders Only [facility] [address] [place] [address] Rolanda Ramos LPN Social History Tobacco Use [...] Description 11/15/2024 9:00 AM EDT Office Visit [facility] [address] [place] [address] Rosalind Galindo MD 230 [place] [address] documented as of this encounter Visit Diagnoses Not on filedocumented in this encounter Care Teams Personnel Director Relationship Specialty Start Date End Date Rosalind Galindo MD [address] [place] [place] [address] [phone] PCP - General Family Medicine 01/23/21 documented as of this encounter
--- OUTSIDE RECORDS SUMMARY | 2024-10-12 15:45 | XMS_ITS | Encounter Summary ---
Author Organization [email or web address] Address [address] [facility] 7t [place] [address] Care Team Providers Care Inventory Audit Clerk Name Role Phone Rosalind Galindo MD Primary Care Provide r Reason for Visit * Reason Comments Med Refill Encounter Details Date Type Department Care Team ([facility] st Contact Info) Description 04/23/2023 Refill [facility] MEDICINE [address] [place], [place] [phone] Kaitlin Leung MD 230 [place], [place] [phone] Anxiety disorder, unspecified Social History Tobacco Use [...] 9:00 AM EDT Office Visit [facility] MEDICINE [address] [place] [address] Rosalind Galindo MD [address] [place] [address] documented as of this encounter Visit Diagnoses Diagnosis Anxiety disorder, unspecified documented in this encounter Care Teams Inventory Audit Clerk Relationship Specialty Start Date End Date Rosalind Galindo MD [address] [place] [phone] PCP - General Family Medicine 01/23/21 documented as of this encounter
--- OUTSIDE RECORDS SUMMARY | 2024-10-12 15:45 | XMS_ITS | Encounter Summary ---
Author Organization [employer] Address [address] [facility] 7t [place] [address] Care Team Providers Care Orthopedics Pediatric Physician Name Role Phone Rosalind Galindo MD Primary Care Provide r Encounter Details Date Type Department Care Team (Late st Contact Info) Description 09/01/2022 Orders Only [facility] MED & PEDS [address] [place] [address] Rolanda Ramos LPN Social History Tobacco Use [...] Description 11/15/2024 9:00 AM EDT Office Visit [facility] MEDICINE 230 [place] [address] Rosalind Galindo MD 230 [place] [address] documented as of this encounter Visit Diagnoses Not on filedocumented in this encounter Care Teams Orthopedics Pediatric Physician Relationship Specialty Start Date End Date Rosalind Galindo MD [address] [place] [address] PCP - General Family Medicine 01/23/21 documented as of this encounter
--- OUTSIDE RECORDS SUMMARY | 2024-10-12 15:45 | XMS_ITS | Encounter Summary ---
Author Organization [facility] Address [address] [place] [address] Phone Care Team Providers Care Community Outreach Coordinator Name Role Phone Isa Momin MD Primary Care Provider [phone] Encounter Details Date Type Department Care Team (Late st Contact Info) Description 01/21/2017 Conversion Encounter [facility] [address] [place] [address] Social History Tobacco Use Types Packs/Day Years [...] on filedocumented in this encounter Care Teams Community Outreach Coordinator Relationship Specialty Start Date End Date Isa Momin MD [address] [place] [address] PCP - General 01/15/17 08/19/22 documented as of this encounter
--- OUTSIDE RECORDS SUMMARY | 2024-10-12 15:45 | XMS_ITS | Encounter Summary ---
Author Organization [facility] Address [address] [place] [address] Phone Care Team Providers Care Painter Decorator Name Role Phone Isa Momin MD Primary Care Provider [phone] Encounter Details Date Type Department Care Team (Late st Contact Info) Description 08/28/2009 Documentation EM Family Medicine [address] [place] [address] Family Medicine, Physician [address] [place], [place] [phone] Social History Tobacco Use Types Packs/Day Years [...] on filedocumented in this encounter Care Teams Painter Decorator Relationship Specialty Start Date End Date Isa Momin MD [address] [place] [address] DULCE MARIA Reardon [phone] PCP - General 01/15/17 08/19/22 documented as of this encounter
--- OUTSIDE RECORDS SUMMARY | 2024-10-12 15:45 | XMS_ITS | Encounter Summary ---
Author Organization [employer] Address [address] [facility] [address] 7t [place] [address] Care Team Providers Care Correctional Cook Name Role Phone Rosalind Galindo MD Primary Care Provide r Encounter Details Date Type Department Care Team (Late st Contact Info) Description 07/03/2024 Orders Only [facility] MEDICINE 230 [place], [place] [phone] ProviderSusie MD Social History Tobacco Use Types [...] Description 11/15/2024 9:00 AM EDT Office Visit [facility] [address] [place] [address] Rosalind Galindo MD 230 [place] [address] documented as of this encounter Procedures Procedure [...] on filedocumented in this encounter Care Teams Correctional Cook Relationship Specialty Start Date End Date Rosalind Galindo MD [address] [place] [address] PCP - General Family Medicine 01/23/21 documented as of this encounter
--- OUTSIDE RECORDS SUMMARY | 2024-10-12 15:45 | XMS_ITS | Clinical Summary ---
Author Organization [facility] [address] [place] [address] Address [address] [place], [place] Phone Care Team Providers Care Cake Winder Name Role Phone Rosalind Galindo MD Primary [...] AM EDT Clinical Support Obstetrics and Gynecology [address] [phone] Encounter for surveillance of injectable contraceptive (Primary [...] AM EDT Clinical Support Obstetrics and Gynecology [address] [phone] Health Maintenance Due Date Last Done Comments [...] Results * Cervical Cancer Screening: HPV (11/22/2023) [facility] Cervical Cancer Screening: HPV Abstracted, Negative Historical Provider HEALTH MAINTENANCE Final Result * HIV Screening (10/01/2017) [facility] HIV Screening Abstracted Historical Provider HEALTH MAINTENANCE Final Result * Hepatitis C Screening (10/01/2017) [facility] Hepatitis C Screening Abstracted Historical Provider HEALTH MAINTENANCE Final Result from Last 3 Months or Most Recently Relevant to Health Maintenance Insurance MEDICAID - [place] Care Teams Cake Winder Relationship Specialty Start Date End Date Rosalind Galindo MD [address] [phone] PCP - General Internal Medicine 08/11/24
--- OUTSIDE RECORDS SUMMARY | 2024-10-12 15:45 | XMS_ITS | Encounter Summary ---
Author Organization [employer] Address [address] [facility] 7t [place] [address] Care Team Providers Care Cyber Security Systems Engineer Name Role Phone Rosalind Galindo MD Primary Care Provide r Encounter Details Date Type Department Care Team (Late st Contact Info) Description 02/04/2023 Orders Only [facility] MED & PEDS [address] [place] [address] Rolanda Ramos LPN Social History Tobacco Use [...] Description 11/15/2024 9:00 AM EDT Office Visit [facility] MEDICINE 230 [place] [address] Rosalind Galindo MD 230 [place] [address] documented as of this encounter Visit Diagnoses Not on filedocumented in this encounter Care Teams Cyber Security Systems Engineer Relationship Specialty Start Date End Date Rosalind Galindo MD [address] [place] [address] [phone] PCP - General Family Medicine 01/23/21 documented as of this encounter
--- OUTSIDE RECORDS SUMMARY | 2024-10-12 15:45 | XMS_ITS | Encounter Summary ---
Author Organization [facility] Address [address] [place] [address] Phone Care Team Providers Care Mdm Developer Name Role Phone Isa Momin MD Primary Care Provider [phone] Encounter Details Date Type Department Care Team (Late st Contact Info) Description 09/25/2009 Documentation EM Family Medicine [address] [place] [address] Family Medicine, Physician [address] [place], [place] 214901 Social History Tobacco Use Types Packs/Day Years [...] on filedocumented in this encounter Care Teams Mdm Developer Relationship Specialty Start Date End Date Isa Momin MD [address] [place] [address] DULCE MARIA Reardon [phone] PCP - General 01/15/17 08/19/22 documented as of this encounter
--- OUTSIDE RECORDS SUMMARY | 2024-10-12 15:45 | XMS_ITS | Clinical Summary ---
Author Organization [employer] Address [address] [facility] 7t [place] [address] Care Team Providers Care Agronomy Technician Name Role Phone Rosalind Galindo MD Primary [...] Department Care Team Description 08/31/2024 Orders Only [facility] MEDICINE [address] [place] [address] Rosalind Galindo MD Chronic left shoulder pain (Primary Dx); Chronic neck pain 08/31/2024 Telephone [facility] [address] [place] [address] Rosalind Galindo MD 08/23/2024 9:15 AM EDT Office Visit [facility] MEDICINE [address] [place] [address] Rosalind Galindo MD Chronic left shoulder pain (Primary Dx); Chronic neck pain; Left hand weakness; Anxiety disorder, unspecified; Anxiety 08/23/2024 Travel 08/18/2024 Population Health Risk Score [facility] Department [address] [place] [phone] Provider, Population Health Generic 08/15/2024 Patient Outreach [facility] MEDICINE [address] [place] [address] Rosalind Galindo MD Pre-visit Planning (SDOH [...] Moderna Covid-19 Vaccine 12+ 07/22/2021,11/24/19 21,11/12/2020 Novel [id number], all formulations 04/15/2009 TD (adult), 2 Lf [...] Description 11/15/2024 9:00 AM EDT Office Visit [facility] MEDICINE 230 [place] [address] Rosalind Galindo MD 230 [place] [address] Health Maintenance Due Date Last Done Comments [...] HEPATITIS C ANTIBODY NON-REACT DESTINY NON-REACT DESTINY [facility] INDEX 0.02 <1.00 [facility] Comment: ?? HCV antibody was non-reactive. There is no laboratory ?? evidence of HCV infection. ?? In most cases, no further action is required. However, if recent HCV exposure is suspected, a test for HCV RNA (test code 63566) is suggested. ?? For additional information please refer to http://education.[employer].01[employer]/faq/JKL56q3 (This link is being provided for informational/ educational purposes only.) ?? 10/13/2021 8:45 AM EDT Rosalind Carballo MD HISTORICAL/NON ORDERA BLE LABS Final Result [facility] [address] * HIV 1/2 ANTIGEN/ANTIBODY,FOURTH GENERATION W/RFL (10/13/2021 8:45 AM EDT) HIV-1/2 ANTIGEN AND ANTIBODIES, 4TH GENERATION W/ REFLEX NON-REACT DESTINY NON-REACT DESTINY [facility] Comment: HIV-1 antigen and HIV-1/HIV-2 [...] ? For additional information please refer to http://education.[employer]/faq/CCL739 (This link is being provided for informational/ educational purposes only.) ? The performance of this assay has not been clinically validated in patients less than 2 years old. ?? 10/13/2021 8:45 AM EDT Rosalind Carballo MD LAB BLOOD ORDERABLES Final Result Performing Organization Address City/State/[facility] Co [facility] Number [facility] [address] * Colposcopy (10/06/2021 1:47 PM EDT) Historical Provider IN CLINIC/BEDSIDE ORDERAB LES Final Result from Last 3 Months or Most Recently Relevant to Health Maintenance Insurance [employer] C3 Care Teams Agronomy Technician Relationship Specialty Start Date End Date Rosalind Galindo MD [address] [place] [address] PCP - General Family Medicine 01/23/21
== END 2024-10-11 15:14 | disposition home or self-care (01) ==
LOC: HO.HOSX 15:13
PROVIDERS: Visit Provider Orthopaedic Surgery
DX: M25.512 Pain in left shoulder (principal); M54.2 Cervicalgia
CPT/HCPCS: 73030; 99202

== ENCOUNTER 2024-10-24 09:16 | Outpatient (REF) | payer MEDICAID, SELFPAY ==
--- NOTE | 2024-10-24 09:19 | EMG_ITS ---
Left median and ulnar motor and sensory studies were performed. Left radial sensory study was performed. Left median and lateral antecubital brachial sensory studies were performed and needle examination was performed. IMPRESSION: This is an unremarkable study with no evidence of neuropathy or a proximal lesion. MD ADRIAN Castillo/JOSEFINA / [id number]
--- OUTSIDE RECORDS SUMMARY | 2024-10-24 10:00 | XMS_ITS | Encounter Summary ---
Author Organization [employer] Address [address] [facility] 7t [place] [address] Care Team Providers Care Data Collection Technician Name Role Phone Rosalind Galindo MD Primary Care Provide r Reason for Visit * Reason Comments Med Refill Encounter Details Date Type Department Care Team ([facility] st Contact Info) Description 04/23/2023 Refill [facility] MEDICINE 230 [place], [place] [phone] Kaitlin Leung MD 230 [place], [place] [phone] Anxiety disorder, unspecified Social History Tobacco Use [...] Description 11/15/2024 9:00 AM EDT Office Visit [facility] MEDICINE 230 [place] [address] Rosalind Galindo MD 230 [place] [address] documented as of this encounter Visit Diagnoses Diagnosis Anxiety disorder, unspecified documented in this encounter Care Teams Data Collection Technician Relationship Specialty Start Date End Date Rosalind Galindo MD [address] [place] [phone] PCP - General Family Medicine 01/23/21 documented as of this encounter
--- OUTSIDE RECORDS SUMMARY | 2024-10-24 10:00 | XMS_ITS | Encounter Summary ---
Author Organization [employer] Address [address] [facility] [address] 7t [place] [address] Care Team Providers Care Hander In Name Role Phone Rosalind Galindo MD Primary Care Provide r Encounter Details Date Type Department Care Team ([facility] st Contact Info) Description 04/23/2023 Orders Only [facility] MED & PEDS [address] [place] [address] Rolanda Ramos LPN Social History Tobacco Use [...] Description 11/15/2024 9:00 AM EDT Office Visit [facility] MEDICINE 230 [place] [address] Rosalind Galindo MD 230 [place] [address] documented as of this encounter Visit Diagnoses Not on filedocumented in this encounter Care Teams Hander In Relationship Specialty Start Date End Date Rosalind Galindo MD [address] [place] [address] [phone] PCP - General Family Medicine 01/23/21 documented as of this encounter
--- OUTSIDE RECORDS SUMMARY | 2024-10-24 10:00 | XMS_ITS | Clinical Summary ---
Author Organization [facility] [address] [place] [address] Address [address] [place], [place] Phone Care Team Providers Care Customizer Name Role Phone Rosalind Galindo MD Primary [...] AM EDT Clinical Support Obstetrics and Gynecology [address] [phone] Encounter for surveillance of injectable contraceptive (Primary [...] AM EDT Clinical Support Obstetrics and Gynecology [address] [phone] Health Maintenance Due Date Last Done Comments [...] Results * Cervical Cancer Screening: HPV (11/22/2023) [facility] Cervical Cancer Screening: HPV Abstracted, Negative Historical Provider HEALTH MAINTENANCE Final Result * HIV Screening (10/01/2017) [facility] HIV Screening Abstracted Historical Provider HEALTH MAINTENANCE Final Result * Hepatitis C Screening (10/01/2017) [facility] Hepatitis C Screening Abstracted Historical Provider HEALTH MAINTENANCE Final Result from Last 3 Months or Most Recently Relevant to Health Maintenance Insurance MEDICAID - [place] Care Teams Customizer Relationship Specialty Start Date End Date Rosalind Galindo MD [address] [phone] PCP - General Internal Medicine 08/11/24
--- OUTSIDE RECORDS SUMMARY | 2024-10-24 10:00 | XMS_ITS | Clinical Summary ---
Author Organization [employer] Address [address] [facility] 7t [place] [address] Care Team Providers Care Household Appliance Mechanic Name Role Phone Rosalind Galindo MD Primary [...] per day. 30 tablet 08/24/19 25 Active Active Problems Problem Noted Date Diagnosed [...] Department Care Team Description 08/31/2024 Orders Only [facility] MEDICINE [address] [place] [address] Rosalind Galindo MD Chronic left shoulder pain (Primary Dx); Chronic neck pain 08/31/2024 Telephone [employer] [facility] [address] [place], [place] [phone] Rosalind Galindo MD 08/23/2024 9:15 AM EDT Office Visit [facility] MEDICINE [address] [place] [address] Rosalind Galindo MD Chronic left shoulder pain (Primary Dx); Chronic neck pain; Left hand weakness; Anxiety disorder, unspecified; Anxiety 08/23/2024 Travel 08/18/2024 Population Health Risk Score [facility] () Department [address] [place] [phone] Provider, Population Health Generic 08/15/2024 Patient Outreach [facility] [address] [place] [address] Rosalind Galindo MD Pre-visit Planning (SDOH Screening negative and Tobacco screening negative) from Last 3 Months Immunizations Immunization Administration Dates Next Due DTP 01/04/1990,1989 DTaP, [...] MCV4P ACYW-135 12/22/2005 Moderna Covid-19 Vaccine 12+ 07/22/2021,11/24/19,11/12/2020 Novel [id number], all formulations 04/15/2009 TD (adult), 2 Lf [...] Description 11/15/2024 9:00 AM EDT Office Visit [facility] MEDICINE 230 [place] [address] Rosalind Galindo MD 230 [place] [address] Health Maintenance Due Date Last Done Comments Disability Screening 1989 Family Planning (PISQ) 2004 Pneumococcal Vaccine: Pediatrics [...] 08/23/2025 08/23/2024 Depression Screening 08/23/2025 08/23/2024, 08/24/19 Tobacco Screening 08/23/2025 08/23/2024 Zoster Vaccines (1 [...] PAP/HPV (11/22/2023 1:51 PM EDT) Historical Provider MD HEALTH MAINTENANCE Final Result * HEPATITIS C AB W/REFL TO HCV RNA, QN, PCR (10/13/2021 8:45 AM EDT) HEPATITIS C ANTIBODY NON-REACT DESTINY NON-REACT DESTINY [facility] INDEX 0.02 <1.00 [facility] Comment: ?? HCV antibody was non-reactive. There is no laboratory ?? evidence of HCV infection. ?? In most cases, no further action is required. However, if recent HCV exposure is suspected, a test for HCV RNA (test code 34151) is suggested. ?? For additional information please refer to http://education.[employer] - [employer] Live.[employer]/faq/YHQ13k9 (This link is being provided for informational/ educational purposes only.) ?? 10/13/2021 8:45 AM EDT Rosalind Carballo MD HISTORICAL/NON ORDERA BLE LABS Final Result [facility] [address] * HIV 1/2 ANTIGEN/ANTIBODY,FOURTH GENERATION W/RFL (10/13/2021 8:45 AM EDT) HIV-1/2 ANTIGEN AND ANTIBODIES, 4TH GENERATION W/ REFLEX NON-REACT DESTINY NON-REACT DESTINY [facility] Comment: HIV-1 antigen and HIV-1/HIV-2 [...] ? For additional information please refer to http://[employer] Resumator/faq/YKR615 (This link is being provided for informational/ educational purposes only.) ? The performance of this assay has not been clinically validated in patients less than 2 years old. ?? 10/13/2021 8:45 AM EDT Rosalind Carballo MD LAB BLOOD ORDERABLES Final Result [facility] [address] * Colposcopy (10/06/2021 1:47 PM EDT) Historical Provider MD IN CLINIC/BEDSIDE ORDERAB LES Final Result from Last 3 Months or Most Recently Relevant to Health Maintenance Insurance C3 Care Teams Household Appliance Mechanic Relationship Specialty Start Date End Date Rosalind Galindo MD [address] [place] [phone] PCP - General Family Medicine 01/23/21
--- OUTSIDE RECORDS SUMMARY | 2024-10-24 10:00 | XMS_ITS | Encounter Summary ---
Author Organization [employer] Address 75 [facility] 7t [place] [address] Care Team Providers Care Can Filling And Closing Machine Tender Name Role Phone Rosalind Galindo MD Primary Care Provide r Encounter Details Date Type Department Care Team (Late st Contact Info) Description 02/04/2023 Orders Only [facility] MED & PEDS [address] [place] [address] Rolanda Ramos LPN Social History Tobacco Use [...] 9:00 AM EDT Office Visit [facility] MEDICINE 230 [place] [address] Rosalind Galindo MD 230 [place] [address] documented as of this encounter Visit Diagnoses Not on filedocumented in this encounter Care Teams Can Filling And Closing Machine Tender Relationship Specialty Start Date End Date Rosalind Galindo MD [address] [place] [address] [phone] PCP - General Family Medicine 01/23/21 documented as of this encounter
--- OUTSIDE RECORDS SUMMARY | 2024-10-24 10:00 | XMS_ITS | Encounter Summary ---
Author Organization [employer] Address [address] [facility] 7t [place] [address] Care Team Providers Care Landscape And Yardwork Laborer Name Role Phone Rosalind Galindo MD Primary Care Provide r Encounter Details Date Type Department Care Team (Late st Contact Info) Description 09/01/2022 Orders Only [facility] MED & PEDS [address] [place] [address] Rolanda Ramos LPN Social History Tobacco Use [...] 11/15/2024 9:00 AM EDT Office Visit [facility] MEDICINE 230 [place] [address] Rosalind Galindo MD 230 [place] [address] documented as of this encounter Visit Diagnoses Not on filedocumented in this encounter Care Teams Landscape And Yardwork Laborer Relationship Specialty Start Date End Date Rosalind Galindo MD [address] [place] [phone] PCP - General Family Medicine 01/23/21 documented as of this encounter
--- OUTSIDE RECORDS SUMMARY | 2024-10-24 10:00 | XMS_ITS | Encounter Summary ---
Author Organization [employer] Address [address] [place] [address] Care Team Providers Care Marketing Financial Analyst Name Role Phone Rosalind Galindo MD Primary Care Provide r Encounter Details Date Type Department Care Team (Late st Contact Info) Description 07/03/2024 Orders Only [facility] [address] [place], [place] [phone] ProviderSusie MD Social History Tobacco Use Types [...] Description 11/15/2024 9:00 AM EDT Office Visit [facility] [address] [place] [address] Rosalind Galindo MD [address] [place] [address] documented as of this encounter Procedures Procedure [...] on filedocumented in this encounter Care Teams Marketing Financial Analyst Relationship Specialty Start Date End Date Rosalind Galindo MD [address] [place] [id number] PCP - General Family Medicine 01/23/21 documented as of this encounter
== END 2024-10-24 09:17 | disposition home or self-care (01) ==
LOC: HO.NEURO 09:16
PROVIDERS: Visit Provider Internal Medicine
DX: M25.512 Pain in left shoulder (principal); G89.29 Other chronic pain; M54.2 Cervicalgia; R29.898 Other symptoms and signs involving the musculoskeletal system
CPT/HCPCS: 95886; 95910